=== PATIENT | female | born 1975 | race Caucasian/White ===

== ENCOUNTER 2024-12-02 15:27 | Emergency (ER) | payer MEDICAID, SELFPAY ==
[2024-12-02 16:08] VITALS: BP 124/78; PULSE 79; RESP 16; TEMP 36.6; O2SAT 99
--- NOTE | 2024-12-02 16:19 | XR_ITS ---
Examination: Hand, right 3 views Technique: Hand AP, oblique, lateral 3 views Date and time of exam: December 02, 2024 1652 hours INDICATIONS: Injury to the hand today with third digit pain. FINDINGS: Advanced osteoarthritis first carpometacarpal joint Moderate osteopenia Soft tissue swelling about the third digit No definite acute fracture IMPRESSION: No acute fracture Suggest short-term follow-up as clinically warranted
[2024-12-02] MEDS: IBUPROFEN TAB 400 MG TABLET 800 MG PO (16:25)
[2024-12-02] MEDS: HYDROcodone/APAP 5/325 TABLET 1 TAB PO (16:26)
--- NOTE | 2024-12-02 17:47 | PD.EDUPEX ---
Upper Extremity Injury RME/HPI General Chief Complaint: Extremity Injury, Upper Stated Complaint: LOCKED R) MIDDLE FINGER Time Seen by Provider: 12/02/24 16:02 Arrival date/time: 12/02/24 15:27 49-year-old female presents for concerns for right middle finger injury patient has deformity to finger and patient reports that she had an injury approximately 1 week ago. Limitations: no limitations Related Data Previous Rx's ?Medication ?Instructions ?Recorded magnesium oxide 400 mg (241.3 mg 400 mg PO QDAY #10 tabs 03/19/21 magnesium) tablet multivitamin-iron 9 mg-folic acid 1 tab PO QDAY #30 tabs 03/19/21 400 mcg-calcium and minerals tablet (Thera M Plus (ferrous fumarate)) potassium chloride 20 mEq 40 meq (2 x 20 mEq) PO DAILY #7 03/19/21 tablet,extended tabs release(part/cryst) (Klor-Con M) baclofen 5 mg tablet 5 mg PO TID PRN muscle spasm #20 06/04/24 tabs ibuprofen 600 mg tablet 600 mg PO Q8H PRN pain #20 tabs 06/04/24 hydrocodone 5 mg-acetaminophen 325 1 tab PO BID PRN pain #10 tabs 12/02/24 mg tablet ibuprofen 600 mg tablet 600 mg PO Q6H #30 tabs 12/02/24 Allergies Allergy/AdvReac Type Severity Reaction Status Date / Time No Known Allergies Allergy Verified 12/02/24 15:30 Review of Systems Review of Systems Systems Reviewed: All systems reviewed, normal except as documented Constitutional Constitutional: Reports system reviewed and no additional complaints, except as documented, Denies fever(s) and Denies headache(s) Eyes Eyes: Reports system reviewed and no additional complaints, except as documented and Denies blurry vision ENT Ears, Nose, Mouth, and Throat: Reports system reviewed and no additional complaints, except as documented, Denies headache(s), Denies nasal congestion and Denies nasal discharge Cardiovascular Cardiovascular: Reports system reviewed and no additional complaints, except as documented, Denies chest pain and Denies dyspnea Respiratory Respiratory: Reports system reviewed and no additional complaints, except as documented, Denies chest congestion, Denies cough and Denies dyspnea Gastrointestinal Gastrointestinal: Reports system reviewed and no additional complaints, except as documented and Denies abdominal pain Musculoskeletal Musculoskeletal: Reports system reviewed and no additional complaints, except as documented, Reports arthralgias, Reports deformity and Reports stiffness Integumentary/Breasts Skin/Breast: Reports system reviewed and no additional complaints, except as documented and Denies rash Neurologic Neurologic: Reports system reviewed and no additional complaints, except as documented, Reports as per HPI and Denies headache(s) Past Medical History Past Medical History NEUROLOGIC: Negative Neurological Disorders CARDIAC: Negative Cardiac Disorders or Congestive Heart Failure RESPIRATORY: Negative Chronic Obstructive Pulmonary Disease (COPD) GASTROINTESTINAL: Negative Gastrointestinal Disorders GENITOURINARY: Negative Genitourinary Disorders or Renal Disease REPRODUCTIVE: Positive Previous Pregnancies MUSCULOSKELETAL: Negative Musculoskeletal Disorders ENDOCRINE: Negative Endocrine Disorders, Diabetes Mellitus Type 1 or Diabetes Mellitus Type 2 HEMATOLOGIC: Negative Blood Disorders OTHER HISTORY: Positive Chicken Pox; Negative Autoimmune Disease Family History FAMILY HISTORY: Positive Family Cardiac Disorders, Family Cancer and Family Surgery Surgical History SURGICAL: Positive Tubal Ligation and Section Social History SMOKING STATUS: Current every day smoker ED Exam General Limitations: Present no limitations General appearance: Present alert and in no apparent distress Head Head exam: Present atraumatic Eye Eye exam: Present normal appearance, PERRL and EOMI ENT ENT exam: Present normal exam, normal oropharynx and mucous membranes moist Neck Neck exam: Present normal inspection, full ROM and trachea midline Chest Chest inspection: Present normal inspection and symmetric chest wall rise Respiratory Respiratory exam: Present normal lung sounds bilaterally Cardiovascular Cardiovascular exam: Present regular rate, normal rhythm and normal heart sounds Abdominal Exam Abdominal exam: Present soft and normal bowel sounds Extremities Exam Extremities exam: Present normal inspection and full ROM Back Exam Back exam: Present normal inspection and full ROM Neurological Exam Neurological exam: Present alert, oriented X3 and CN II-XII intact Psychiatric Psychiatric exam: Present normal affect and normal mood Skin Skin exam: Present warm, dry, intact and normal color Course Quality Measures none Orders Category Date Time Status Splint / Immobilizer STAT Care 12/02/24 17:55 Completed XR hand comp RT min 3V Stat Exams 12/02/24 16:19 Completed HYDROcodone*/APAP 5/325 [[place] 5/325] Med 12/02/24 16:19 Discontinued 1 tab PO X1 ONE Ibuprofen Tab [Motrin Tab] Med 12/02/24 16:19 Discontinued 800 mg PO X1 ONE Vital Signs Vital signs: Vital Signs Temperature 98 F 12/02/24 16:08 Pulse Rate 79 12/02/24 16:08 Respiratory Rate 16 12/02/24 16:08 Blood Pressure 124/78 12/02/24 16:08 Pulse Oximetry (%) 99 12/02/24 16:08 O2 saturation 99% room air within normal limits Procedures -ED Orthopedic Joint Reduction Joint #1: Time Out Performed: Yes Side: Right Joint Reduction Location: finger Amount of anesthesic used (mL): 0 Shoulder Technique Used (if applicable): traction/counter-traction Technique used: traction/counter-traction Post-reduction neuro exam: intact Post-reduction vascular: intact Post Reduction X-Ray Obtained: Yes Post Reduction X-Ray Results: reduced Splint Applied: Yes Patient Tolerated Procedure: well Extremity Injury MDM Narrative MDM Narrative:: 49-year-old female presents for concerns for right middle finger injury patient has deformity to finger and patient reports that she had an injury approximately 1 week ago. On exam patient has what appears to be a dislocation right hand middle finger with direct traction I pulled the finger back into place when I let go of the finger came out of place again Once again I put the finger back into place and patient was splinted immediately to keep the finger in place capillary refill intact Imaging obtained no dislocation or fracture noted Explained to the patient she must wear the splint at all times and the splint cannot come off she must see her PCP in order get a referral to specialist for possible hand surgery Patient discharged home in no distress to follow-up with primary care doctor in the next 24 to 48 hours and for any worsening symptoms to return to the ER immediately Patient data External records reviewed:: [facility] previous records Clinical information provided by:: patient Social determinants that could affect healthcare access:: none Patient has the following chronic illnesses:: See history How is presenting disease/condition affected by chronic disease/condition?: uneffected by Evaluation data The following diagnostics were reviewed and interpreted by me:: radiology exam(s) Lab and/or radiology exams considered but not ordered:: Radiology obtain Interpretation Summary: Reviewed by me Medications / Prescriptions Medications or Prescriptions considered but not ordered:: Given Medication administrations:: Medication Administration History Discontinued Medications Hydrocodone Bitart/Acetaminophen (Hydrocodone/Apap 5/325 Tablet) 1 tab PO X1 ONE Stop: 12/02/24 16:20 Last Admin: 12/02/24 16:26 Dose: 1 tab Documented By: OA Ibuprofen (Ibuprofen Tab 400 Mg Tablet) 800 mg PO X1 ONE Stop: 12/02/24 16:20 Last Admin: 12/02/24 16:25 Dose: 800 mg Documented By: OA Given Consultations Consultation(s) initiated? (list below): No Diagnosis Upper Extremity Injury Differential Diagnosis: other (Finger sprain, finger fracture, finger dislocation) Most likely diagnosis given after review of the tests above:: Dislocation finger Admission Indicated Admission indicated?: not indicated Admission Request Was there a request for admission?: No Disposition Plan Disposition Plan: Discharge Discharge Attestation Discharge Attestation: The patient and all family members were given an opportunity to ask questions and understood the discharge instructions. Discharge instructions specifically effects, indications for sooner follow up or return to the emergency department, and the expected course of current diagnosis. Patient condition: Stable Discharge Plan Plan Patient Disposition: HOME (Self Care) Disposition Comment: Stable Prescriptions/Referrals Prescriptions/Med Rec: New hydrocodone-acetaminophen 5-325 mg tablet 1 tab PO BID MDD 10 PRN (Reason: pain) Qty: 10 0RF ibuprofen 600 mg tablet 600 mg PO Q6H Qty: 30 0RF No Action magnesium oxide 400 mg (241.3 mg magnesium) Tablet 400 mg PO QDAY Qty: 10 0RF potassium chloride [Klor-Con M20] 20 mEq Tablet,Er Particles/Crystals 40 meq PO DAILY Qty: 7 0RF Thera M Plus (ferrous fumarat) 9 mg iron-400 mcg Tablet 1 tab PO QDAY Qty: 30 0RF ibuprofen 600 mg tablet 600 mg PO Q8H PRN (Reason: pain) Qty: 20 0RF baclofen 5 mg tablet 5 mg PO TID PRN (Reason: muscle spasm) Qty: 20 0RF Referrals: No Primary/Family,Physician [Primary Care Provider] - 12/03/24 Problem List Clinical Impression: Dislocation of finger, closed Patient/Caregiver Discharge Instructions Education Materials: ED Finger Dislocation Additional Instructions: Please follow up with your primary care doctor in the next 24-48hrs for any worsening symptoms return here immediately Wear splint at all times You must follow-up with your PCP in order get a referral to specialist Print Language: Gabonese Stand Alone Forms: Kelly Sabillon Info., Patient Portal Info Letter PA/COMMERCIAL LINES ACCOUNT ASSISTANT Supervising Physician PA/COMMERCIAL LINES ACCOUNT ASSISTANT Supervising Physician: Dr montenegro
== END 2024-12-02 19:58 | disposition home or self-care (01) ==
PROVIDERS: Emergency Provider Emergency Medicine
DX: S63.252A Unspecified dislocation of right middle finger, initial encounter (principal); X58.XXXA Exposure to other specified factors, initial encounter
CPT/HCPCS: 73130; 99283; A9270

== ENCOUNTER 2025-01-29 22:36 | Emergency (ER) | payer MEDICAID, SELFPAY ==
[2025-01-29 22:39] VITALS: BMI 22.3
[2025-01-29 23:00] VITALS: BP 137/82; PULSE 80; RESP 18; TEMP 36.7; O2SAT 99
--- NOTE | 2025-01-29 23:13 | XR_ITS ---
Examination: Fingers, right hand third digit 3 views Technique: AP, oblique, lateral views right hand third digit 3 views. Exam date and time: 0029 hours INDICATIONS: Right hand third digit deformity today. FINDINGS: Dislocation at the proximal interphalangeal joint third digit Advanced osteoarthritis first carpometacarpal joint IMPRESSION: Dislocation at the proximal interphalangeal joint third digit
--- NOTE | 2025-01-29 23:28 | EDNOTE_ITS ---
Upper Extremity Injury RME/HPI General Chief Complaint: Hand/Wrist Problems Stated Complaint: 3RD RIGHT FINGER POPPED OUT, FEELS NOT RIGHT Time Seen by Provider: 01/29/25 23:12 Arrival date/time: 01/29/25 22:36 49F with history of drug use presents to ED with R middle finger swelling. Patient denies fall/trauma. Limitations: no limitations Related Data Previous Rx's ?Medication ?Instructions ?Recorded magnesium oxide 400 mg (241.3 mg 400 mg PO QDAY #10 ta bs 03/19/21 magnesium) tablet multivitamin-iron 9 mg-folic acid 1 tab PO QDAY #30 ta bs 03/19/21 400 mcg-calcium and minerals tablet (Thera M Plus (ferrous fumarate)) potassium chloride 20 mEq 40 meq (2 x 20 mEq) PO DAILY #7 03/19/21 tablet,extended tabs release(part/cryst) (Klor-Con M) baclofen 5 mg tablet 5 mg PO TID PRN muscle spasm #20 06/04/24 tabs ibuprofen 600 mg tablet 600 mg PO Q8H PRN pain #20 t abs 06/04/24 hydrocodone 5 mg-acetaminophen 325 1 tab PO BID PRN pa in #10 tabs 12/02/24 mg tablet ibuprofen 600 mg tablet 600 mg PO Q6H #30 tabs 12/02 Allergies Allergy/AdvReac Type Severity Reaction Status Date / Time No Known Allergies Allergy Verified 01/29/25 22:39 Review of Systems Review of Systems Systems Reviewed: All systems reviewed, normal except as documented Constitutional Constitutional: Reports system reviewed and no additional complaints, except as documented, Denies fever(s) and Denies headache(s) ENT Ears, Nose, Mouth, and Throat: Denies disequilibrium and Denies headache(s) Cardiovascular Cardiovascular: Reports system reviewed and no additional complaints, except as documented, Denies chest pain and Denies dyspnea Respiratory Respiratory: Reports system reviewed and no additional complaints, except as documented, Denies cough and Denies dyspnea Gastrointestinal Gastrointestinal: Reports system reviewed and no additional complaints, except as documented, Denies abdominal pain, Denies nausea and Denies vomiting Musculoskeletal Musculoskeletal: Reports as per HPI and Reports joint swelling Neurologic Neurologic: Reports system reviewed and no additional complaints, except as documented, Denies confusion, Denies disequilibrium and Denies headache(s) Psychiatric Psychiatric: Denies confusion Past Medical History Past Medical History NEUROLOGIC: Negative Neurological Disorders CARDIAC: Negative Cardiac Disorders or Congestive Heart Failure RESPIRATORY: Negative Chronic Obstructive Pulmonary Disease (COPD) GASTROINTESTINAL: Negative Gastrointestinal Disorders GENITOURINARY: Negative Genitourinary Disorders or Renal Disease REPRODUCTIVE: Positive Previous Pregnancies MUSCULOSKELETAL: Negative Musculoskeletal Disorders ENDOCRINE: Negative Endocrine Disorders, Diabetes Mellitus Type 1 or Diabetes Mellitus Type 2 HEMATOLOGIC: Negative Blood Disorders OTHER HISTORY: Positive Chicken Pox; Negative Autoimmune Disease Family History FAMILY HISTORY: Positive Family Cardiac Disorders, Family Cancer and Family Surgery Surgical History SURGICAL: Positive Tubal Ligation and Section Social History SMOKING STATUS: Current every day smoker ED Exam General Limitations: Present no limitations General appearance: Present alert and in no apparent distress Head Head exam: Present atraumatic Eye Eye exam: Present normal appearance, PERRL and EOMI ENT ENT exam: Present normal exam, normal oropharynx and mucous membranes moist Neck Neck exam: Present normal inspection, full ROM and trachea midline Chest Chest inspection: Present normal inspection and symmetric chest wall rise Respiratory Respiratory exam: Present normal lung sounds bilaterally Cardiovascular Cardiovascular exam: Present regular rate, normal rhythm and normal heart sounds Abdominal Exam Abdominal exam: Present soft and normal bowel sounds Extremities Exam Extremities exam: Present full ROM Expanded Upper Extremity Exam Hand exam: Present tenderness (R middle finger) Back Exam Back exam: Present normal inspection and full ROM Neurological Exam Neurological exam: Present alert, oriented X3 and CN II-XII intact Psychiatric Psychiatric exam: Present normal affect and normal mood Skin Skin exam: Present warm, dry, intact and normal color Course Quality Measures none Orders Category Date Time Status XR finger RT min 2V Stat Exams 01/29/25 23:13 Taken Vital Signs Vital signs: Vital Signs Temperature 98.1 F 01/29/25 23:00 Pulse Rate 80 01/29/25 23:00 Respiratory Rate 18 01/29/25 23:00 Blood Pressure 137/82 H 01/29/25 23:00 Pulse Oximetry (%) 99 01/29/25 23:00 Oxygen Delivery Method Room Air 01/29/25 23:00 O2 at 99% on RA and WNLs Extremity Injury MDM Narrative MDM Narrative:: 49F with history of drug use presents to ED with R middle finger swelling. Patient denies fall/trauma. Physical exam reveals R middle finger swelling around middle joint. ROM limited. Patient is afebrile, calm, and alert. XR reveals R middle finger dislocation. Patient states it's been like this since previous visit 2 months ago. Patient does not want reduction as she has hand specialist appt soon. Patient data External records reviewed:: [facility] previous records Clinical information provided by:: patient Social determinants that could affect healthcare access:: alcohol use Patient has the following chronic illnesses:: drug use How is presenting disease/condition affected by chronic disease/condition?: exacerbated by Evaluation data The following diagnostics were reviewed and interpreted by me:: radiology exam(s) Lab and/or radiology exams considered but not ordered:: ordered Interpretation Summary: above Medications / Prescriptions Medications or Prescriptions considered but not ordered:: not ordered Medication administrations:: n/a Consultations Consultation(s) initiated? (list below): No Diagnosis Upper Extremity Injury Differential Diagnosis: sprain and strain of wrist, fracture of wrist, finger sprain, dislocation of finger, Colles' fracture, fract ure of hand and other (joint swelling) Most likely diagnosis given after review of the tests above:: finger dislocation Admission Indicated Admission indicated?: not indicated Admission Request Was there a request for admission?: No Disposition Plan Disposition Plan: Discharge Discharge Attestation Discharge Attestation: The patient and all family members were given an opportunity to ask questions and understood the discharge instructions. Discharge instructions specifically effects, indications for sooner follow up or return to the emergency department, and the expected course of current diagnosis. Patient condition: Stable Discharge Plan Plan Patient Disposition: HOME (Self Care) Discharge Disposition comment: Stable Prescriptions/Referrals Prescriptions/Med Rec: No Action magnesium oxide 400 mg (241.3 mg magnesium) Tablet 400 mg PO QDAY Qty: 10 0RF potassium chloride [Klor-Con M20] 20 mEq Tablet,Er Particles/Crystals 40 meq PO DAILY Qty: 7 0RF Thera M Plus (ferrous fumarat) 9 mg iron-400 mcg Tablet 1 tab PO QDAY Qty: 30 0RF hydrocodone-acetaminophen 5-325 mg tablet 1 tab PO BID MDD 10 PRN (Reason: pain) Qty: 10 0RF ibuprofen 600 mg tablet 600 mg PO Q6H Qty: 30 0RF ibuprofen 600 mg tablet 600 mg PO Q8H PRN (Reason: pain) Qty: 20 0RF baclofen 5 mg tablet 5 mg PO TID PRN (Reason: muscle spasm) Qty: 20 0RF Referrals: Lazaro Talley MD [Primary Care Provider] - In 1 week Problem List Clinical Impression: Dislocation of finger Patient/Caregiver Discharge Instructions Education Materials: ED Finger Dislocation Additional Instructions: Please follow-up with PCP within 24-48 hours and return immediately if symptoms worsen. Good luck with specialist appt. Print Language: Mexican Stand Alone Forms: Patient Portal Info Letter PA/PILE DRIVER ENGINEER Supervising Physician PA/PILE DRIVER ENGINEER Supervising Physician: Dr. Browning
== END 2025-01-30 01:44 | disposition home or self-care (01) ==
PROVIDERS: Emergency Provider Emergency Medicine; PCP Family Medicine
DX: S63.282A Dislocation of proximal interphalangeal joint of right middle finger, initial encounter (principal); X58.XXXA Exposure to other specified factors, initial encounter
CPT/HCPCS: 73140; 99283

== ENCOUNTER 2025-04-12 20:09 | Emergency (ER) | payer MEDICAID, SELFPAY ==
[2025-04-12 20:11] VITALS: BMI 24.1
[2025-04-12 21:19] VITALS: BP 145/91; PULSE 83; RESP 16; TEMP 36.7; O2SAT 98
== END 2025-04-12 21:53 | disposition left against medical advice (07) ==
LOC: SERX 21:09
PROVIDERS: Emergency Provider Emergency Medicine; PCP Family Medicine
DX: Z53.21 Procedure and treatment not carried out due to patient leaving prior to being seen by health care provider (principal)
CPT/HCPCS: 99282

== ENCOUNTER 2025-05-10 12:34 | Emergency (ER) | payer MEDICAID, SELFPAY ==
[2025-05-10 12:35] VITALS: BMI 23.3
[2025-05-10 13:01] VITALS: BP 126/83; PULSE 81; RESP 20; TEMP 36.9; O2SAT 95
--- NOTE | 2025-05-10 13:08 | XR_ITS ---
Examination: Ribs, left, with PA chest, 5 views Technique: Chest PA, RIBS AP, RPO, LPO, AP coned lower ribs 5 views Exam date and time: May 10, 2025, 1313 hrs. Indications: Injury to the chest today with left rib pain Findings: Normal heart size. No pneumothorax No acute rib fractures Impression: No pneumothorax pulmonary contusion or hemothorax No acute rib fractures
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
[2025-05-10 15:20] VITALS: BP 122/84; PULSE 82; RESP 18; TEMP 37; O2SAT 96
== END 2025-05-10 15:28 | disposition home or self-care (01) ==
PROVIDERS: Emergency Provider Emergency Medicine; PCP Family Medicine
DX: S20.219A Contusion of unspecified front wall of thorax, initial encounter (principal); S29.011A Strain of muscle and tendon of front wall of thorax, initial encounter; X58.XXXA Exposure to other specified factors, initial encounter
CPT/HCPCS: 71101; 99282